=== PATIENT | female | born 1950 | race Asian ===

== ENCOUNTER 2019-01-13 19:12 | Inpatient (IN) | payer MEDICARE, OTHER, BC ==
[2019-01-13 23:40] LABS: ADD MAN DIFF? NO
[2019-01-13 23:43] LABS: WHITE BLOOD COUNT 6.8 10^3/ul (4.8-10.8)
[2019-01-13 23:43] LABS: BASOPHIL # 0.1 10^3/ul (0.0-0.1); BASOPHILS % 0.7 % (0.0-2.0); EOSINOPHILS # 0.1 10^3/ul (0.0-0.5); EOSINOPHILS % 2.1 % (0.0-7.0); HEMATOCRIT 38.5 % (37.0-47.0); HEMOGLOBIN 12.7 g/dl (12.0-16.0); LYMPHOCYTES # 1.6 10^3/ul (0.8-2.9); LYMPHOCYTES % 23.8 % (15.0-51.0); MEAN CORPUSCULAR HEMOGLOBIN 31.4 pg (29.0-33.0); MEAN CORPUSCULAR VOLUME 95.1 fl (82.0-101.0); MEAN PLATELET VOLUME 10.4 fl (7.4-10.4); MONOCYTE # 0.5 10^3/ul (0.3-0.9); MONOCYTES % 7.1 % (0.0-11.0); NEUTROPHIL # 4.5 10^3/ul (1.6-7.5); PLATELET COUNT 283 10^3/UL (140-415); RED BLOOD COUNT 4.05 10^6/ul (4.20-5.40)
[2019-01-13 23:59] LABS: ANION GAP 9 (5-13); BLOOD UREA NITROGEN 19 mg/dl (7-20); CARBON DIOXIDE 29 mmol/L (21-31); CHLORIDE 102 mmol/L (97-110); CREATININE 0.56 mg/dl (0.44-1.00); Estimated GFR > 60 mL/min (>60); GLUCOSE 187 mg/dl (70-220); POTASSIUM 3.5 mmol/L (3.5-5.1); SODIUM 140 mmol/L (135-144)
[2019-01-14 00:03] LABS: INR 0.91; PROTIME 12.4 Sec (11.9-14.9)
[2019-01-14] MEDS ORDERED: ACETAMINOPHEN 325 MG TAB PO (01:00)
[2019-01-14] MEDS ORDERED: ONDANSETRON 4 MG INJ IV (01:00)
[2019-01-14] MEDS ORDERED: POTASSIUM CHLORIDE (SR) 20 MEQ TAB PO (01:09)
[2019-01-14] MEDS ORDERED: NACL 0.9% 3 ML SYG IV (01:30)
[2019-01-14] MEDS ORDERED: ONDANSETRON 4 MG TAB PO (01:30)
[2019-01-14] MEDS ORDERED: BISACODYL (EC) 5 MG TAB PO (01:30)
[2019-01-14] MEDS ORDERED: DOCUSATE SODIUM 100 MG CAP PO (01:30)
[2019-01-14] MEDS: morphine 2 MG INJ IV ×2 (04:24→08:34)
[2019-01-14] MEDS: POTASSIUM CHLORIDE (SR) 20 MEQ TAB PO (04:24)
[2019-01-14] MEDS: hydrALAzine 20 MG INJ IV (04:25)
[2019-01-14 05:52] LABS: ADD MAN DIFF? NO
[2019-01-14 05:58] LABS: BASOPHILS % 0.6 % (0.0-2.0); EOSINOPHILS # 0.1 10^3/ul (0.0-0.5); EOSINOPHILS % 1.2 % (0.0-7.0); HEMATOCRIT 40.2 % (37.0-47.0); HEMOGLOBIN 13.4 g/dl (12.0-16.0); LYMPHOCYTES # 1.7 10^3/ul (0.8-2.9); MEAN CORPUSCULAR HEMOGLOBIN 31.3 pg (29.0-33.0); MEAN CORPUSCULAR HGB CONC 33.3 g/dl (32.0-37.0); MEAN CORPUSCULAR VOLUME 93.9 fl (82.0-101.0); MEAN PLATELET VOLUME 10.8 fl (7.4-10.4); MONOCYTE # 0.5 10^3/ul (0.3-0.9); MONOCYTES % 7.6 % (0.0-11.0); NEUTROPHIL # 4.4 10^3/ul (1.6-7.5); NEUTROPHILS % 65.2 % (39.0-77.0); PLATELET COUNT 298 10^3/UL (140-415); RED BLOOD COUNT 4.28 10^6/ul (4.20-5.40); RED CELL DISTRIBUTION WIDTH 11.9 % (11.5-14.5)
[2019-01-14 05:58] LABS: WHITE BLOOD COUNT 6.7 10^3/ul (4.8-10.8)
[2019-01-14 06:16] LABS: HEMOGLOBIN A1C 6.2 % (0-5.9)
[2019-01-14 06:21] LABS: ALANINE AMINOTRANSFERASE 17 IU/L (13-69); ALBUMIN 3.7 g/dl (3.3-4.9); ALBUMIN/GLOBULIN RATIO 1.19; ALKALINE PHOSPHATASE 203 IU/L (42-121); ANION GAP 13 (5-13); ASPARTATE AMINO TRANSFERASE 16 IU/L (15-46); BILIRUBIN,INDIRECT 0.8 mg/dl (0-1.1); BILIRUBIN,TOTAL 0.8 mg/dl (0.2-1.3); BLOOD UREA NITROGEN 16 mg/dl (7-20); CALCIUM 9.2 mg/dl (8.4-10.2); CARBON DIOXIDE 26 mmol/L (21-31); CHLORIDE 102 mmol/L (97-110); CHOL/HDL RATIO 3.1 RATIO; CHOLESTEROL 118 mg/dl (100-200); CREATININE 0.42 mg/dl (0.44-1.00); Estimated GFR > 60 mL/min (>60); GLUCOSE 192 mg/dl (70-220); HDL CHOLESTEROL 37 mg/dl (33-92); LDL CHOLESTEROL,CALCULATED 67 mg/dl; MAGNESIUM 1.9 mg/dl (1.7-2.5); POTASSIUM 3.7 mmol/L (3.5-5.1); SODIUM 141 mmol/L (135-144); TOTAL PROTEIN 6.8 g/dl (6.1-8.1); TRIGLYCERIDES 71 mg/dl (0-149)
[2019-01-14 06:26] LABS: CREATINE KINASE 42 IU/L (23-200)
[2019-01-14 06:31] LABS: CK INDEX 0.7; TROPONIN-I < 0.012 ng/ml (0.000-0.120)
[2019-01-14] MEDS: AMLODIPINE 10 MG TAB PO (08:42)
[2019-01-14 09:23] LABS: TROPONIN-I < 0.012 ng/ml (0.000-0.120)
[2019-01-14 09:26] LABS: CREATINE KINASE 37 IU/L (23-200)
[2019-01-14 09:45] LABS: CK INDEX 0.7; CK-MB 0.25 ng/ml (0.0-2.4)
[2019-01-14] MEDS ORDERED: GLUCOSE GEL 15 GRAM TUBE BUCCAL (11:00)
[2019-01-14] MEDS ORDERED: GLUCAGON 1 MG INJ IM (11:00)
[2019-01-14] MEDS ORDERED: GLUCOSE GEL 15 GRAM TUBE PO ×2 (11:00)
[2019-01-14] MEDS ORDERED: DEXTROSE 50% 50 ML SYRINGE IV ×2 (11:00)
[2019-01-14] MEDS: INSULIN ASPART [NOVOLOG] 3 ML PEN SC ×3 (14:16→20:58)
[2019-01-14 15:02] LABS: CREATINE KINASE 32 IU/L (23-200)
[2019-01-14 15:15] LABS: CK INDEX 0.9; CK-MB 0.29 ng/ml (0.0-2.4); TROPONIN-I < 0.012 ng/ml (0.000-0.120)
[2019-01-14] MEDS: ATORVASTATIN 20 MG TAB PO (20:37)
[2019-01-15 06:06] LABS: ADD MAN DIFF? NO
[2019-01-15 06:26] LABS: WHITE BLOOD COUNT 7.4 10^3/ul (4.8-10.8)
[2019-01-15 06:26] LABS: BASOPHILS % 0.5 % (0.0-2.0); EOSINOPHILS # 0.1 10^3/ul (0.0-0.5); EOSINOPHILS % 1.1 % (0.0-7.0); HEMOGLOBIN 12.2 g/dl (12.0-16.0); LYMPHOCYTES # 1.5 10^3/ul (0.8-2.9); LYMPHOCYTES % 20.1 % (15.0-51.0); MEAN CORPUSCULAR HEMOGLOBIN 31.1 pg (29.0-33.0); MEAN CORPUSCULAR VOLUME 94.4 fl (82.0-101.0); MEAN PLATELET VOLUME 10.8 fl (7.4-10.4); MONOCYTE # 0.5 10^3/ul (0.3-0.9); MONOCYTES % 6.5 % (0.0-11.0); NEUTROPHIL # 5.3 10^3/ul (1.6-7.5); NEUTROPHILS % 71.4 % (39.0-77.0); PLATELET COUNT 308 10^3/UL (140-415); RED BLOOD COUNT 3.92 10^6/ul (4.20-5.40); RED CELL DISTRIBUTION WIDTH 12.1 % (11.5-14.5)
[2019-01-15 06:48] LABS: PHOSPHORUS 3.9 mg/dl (2.5-4.9)
[2019-01-15 07:12] LABS: ALANINE AMINOTRANSFERASE 15 IU/L (13-69); ALBUMIN 3.4 g/dl (3.3-4.9); ALBUMIN/GLOBULIN RATIO 1.06; ALKALINE PHOSPHATASE 186 IU/L (42-121); ANION GAP 10 (5-13); ASPARTATE AMINO TRANSFERASE 17 IU/L (15-46); BILIRUBIN,INDIRECT 0.7 mg/dl (0-1.1); BILIRUBIN,TOTAL 0.7 mg/dl (0.2-1.3); BLOOD UREA NITROGEN 14 mg/dl (7-20); CALCIUM 8.8 mg/dl (8.4-10.2); CARBON DIOXIDE 26 mmol/L (21-31); CHLORIDE 104 mmol/L (97-110); CREATININE 0.49 mg/dl (0.44-1.00); Estimated GFR > 60 mL/min (>60); GLUCOSE 188 mg/dl (70-220); SODIUM 140 mmol/L (135-144); TOTAL PROTEIN 6.6 g/dl (6.1-8.1)
[2019-01-15] MEDS: AMLODIPINE 10 MG TAB PO (08:15)
[2019-01-15] MEDS: ENOXAPARIN 40 MG/0.4 ML SYG SC (08:17)
[2019-01-15] MEDS: INSULIN ASPART [NOVOLOG] 3 ML PEN SC ×4 (08:48→20:37)
[2019-01-15] MEDS: HYDROCODONE/APAP (5/325) TAB PO (16:04)
[2019-01-15] MEDS: ATORVASTATIN 20 MG TAB PO (20:35)
[2019-01-15] MEDS: hydrALAzine 20 MG INJ IV (20:35)
[2019-01-16] MEDS: ACCUCHECK 2 AM XX (02:40)
[2019-01-16] MEDS: morphine 2 MG INJ IV ×2 (03:20→23:45)
[2019-01-16 05:19] LABS: ADD MAN DIFF? NO
[2019-01-16 05:23] LABS: WHITE BLOOD COUNT 7.4 10^3/ul (4.8-10.8)
[2019-01-16 05:24] LABS: BASOPHIL # 0.1 10^3/ul (0.0-0.1); BASOPHILS % 0.7 % (0.0-2.0); EOSINOPHILS # 0.1 10^3/ul (0.0-0.5); EOSINOPHILS % 1.1 % (0.0-7.0); HEMATOCRIT 38.2 % (37.0-47.0); HEMOGLOBIN 12.8 g/dl (12.0-16.0); LYMPHOCYTES # 1.2 10^3/ul (0.8-2.9); LYMPHOCYTES % 16.8 % (15.0-51.0); MEAN CORPUSCULAR HEMOGLOBIN 31.3 pg (29.0-33.0); MEAN CORPUSCULAR HGB CONC 33.5 g/dl (32.0-37.0); MEAN CORPUSCULAR VOLUME 93.4 fl (82.0-101.0); MEAN PLATELET VOLUME 10.5 fl (7.4-10.4); MONOCYTE # 0.5 10^3/ul (0.3-0.9); MONOCYTES % 7.3 % (0.0-11.0); NEUTROPHIL # 5.5 10^3/ul (1.6-7.5); NEUTROPHILS % 73.7 % (39.0-77.0); PLATELET COUNT 329 10^3/UL (140-415); RED BLOOD COUNT 4.09 10^6/ul (4.20-5.40); RED CELL DISTRIBUTION WIDTH 12.3 % (11.5-14.5)
[2019-01-16 05:53] LABS: ALANINE AMINOTRANSFERASE 14 IU/L (13-69); ALBUMIN 3.7 g/dl (3.3-4.9); ALBUMIN/GLOBULIN RATIO 1.15; ALKALINE PHOSPHATASE 208 IU/L (42-121); ANION GAP 9 (5-13); ASPARTATE AMINO TRANSFERASE 16 IU/L (15-46); BILIRUBIN,INDIRECT 0.7 mg/dl (0-1.1); BILIRUBIN,TOTAL 0.7 mg/dl (0.2-1.3); BLOOD UREA NITROGEN 14 mg/dl (7-20); CARBON DIOXIDE 27 mmol/L (21-31); CHLORIDE 102 mmol/L (97-110); CREATININE 0.46 mg/dl (0.44-1.00); Estimated GFR > 60 mL/min (>60); GLUCOSE 247 mg/dl (70-220); POTASSIUM 4.1 mmol/L (3.5-5.1); SODIUM 138 mmol/L (135-144); TOTAL PROTEIN 6.9 g/dl (6.1-8.1)
[2019-01-16 05:55] LABS: PHOSPHORUS 4.1 mg/dl (2.5-4.9)
[2019-01-16] MEDS: AMLODIPINE 10 MG TAB PO (08:56)
[2019-01-16] MEDS: INSULIN ASPART [NOVOLOG] 3 ML PEN SC ×4 (08:58→21:07)
[2019-01-16] MEDS: ENOXAPARIN 40 MG/0.4 ML SYG SC (08:58)
[2019-01-16] MEDS: INSULIN GLARGINE [LANTus] (100 UNITS/ML) SYG SC (10:01)
[2019-01-16] MEDS: ATORVASTATIN 20 MG TAB PO (21:05)
[2019-01-17] MEDS: ACCUCHECK 2 AM XX (02:15)
[2019-01-17 05:12] LABS: ADD MAN DIFF? NO
[2019-01-17 05:22] LABS: WHITE BLOOD COUNT 7.8 10^3/ul (4.8-10.8)
[2019-01-17 05:22] LABS: BASOPHILS % 0.5 % (0.0-2.0); EOSINOPHILS # 0.1 10^3/ul (0.0-0.5); EOSINOPHILS % 1.4 % (0.0-7.0); HEMATOCRIT 38.9 % (37.0-47.0); HEMOGLOBIN 12.8 g/dl (12.0-16.0); LYMPHOCYTES # 1.7 10^3/ul (0.8-2.9); LYMPHOCYTES % 21.9 % (15.0-51.0); MEAN CORPUSCULAR HEMOGLOBIN 31.4 pg (29.0-33.0); MEAN CORPUSCULAR HGB CONC 32.9 g/dl (32.0-37.0); MEAN CORPUSCULAR VOLUME 95.6 fl (82.0-101.0); MEAN PLATELET VOLUME 10.6 fl (7.4-10.4); MONOCYTE # 0.6 10^3/ul (0.3-0.9); MONOCYTES % 7.9 % (0.0-11.0); NEUTROPHIL # 5.3 10^3/ul (1.6-7.5); NEUTROPHILS % 67.9 % (39.0-77.0); PLATELET COUNT 329 10^3/UL (140-415); RED BLOOD COUNT 4.07 10^6/ul (4.20-5.40); RED CELL DISTRIBUTION WIDTH 12.2 % (11.5-14.5)
[2019-01-17 05:54] LABS: ALANINE AMINOTRANSFERASE 16 IU/L (13-69); ALBUMIN 3.5 g/dl (3.3-4.9); ALKALINE PHOSPHATASE 214 IU/L (42-121); ANION GAP 8 (5-13); ASPARTATE AMINO TRANSFERASE 20 IU/L (15-46); BILIRUBIN,INDIRECT 0.8 mg/dl (0-1.1); BILIRUBIN,TOTAL 0.8 mg/dl (0.2-1.3); BLOOD UREA NITROGEN 19 mg/dl (7-20); CALCIUM 9.3 mg/dl (8.4-10.2); CARBON DIOXIDE 28 mmol/L (21-31); CHLORIDE 104 mmol/L (97-110); Estimated GFR > 60 mL/min (>60); GLUCOSE 209 mg/dl (70-220); POTASSIUM 4.4 mmol/L (3.5-5.1); SODIUM 140 mmol/L (135-144)
[2019-01-17] MEDS: INSULIN ASPART [NOVOLOG] 3 ML PEN SC ×4 (09:01→21:56)
[2019-01-17] MEDS: INSULIN GLARGINE [LANTus] (100 UNITS/ML) SYG SC (09:01)
[2019-01-17] MEDS: ENOXAPARIN 40 MG/0.4 ML SYG SC (09:02)
[2019-01-17] MEDS: AMLODIPINE 10 MG TAB PO (09:03)
[2019-01-17] MEDS: ATORVASTATIN 20 MG TAB PO (21:52)
[2019-01-17] MEDS: ACETAMINOPHEN 325 MG TAB PO (22:44)
[2019-01-18] MEDS: INSULIN ASPART [NOVOLOG] 3 ML PEN SC ×6 (08:58→20:21)
[2019-01-18] MEDS: INSULIN GLARGINE [LANTus] (100 UNITS/ML) SYG SC ×2 (08:59→13:19)
[2019-01-18] MEDS: ENOXAPARIN 40 MG/0.4 ML SYG SC (09:00)
[2019-01-18] MEDS: AMLODIPINE 10 MG TAB PO (09:00)
[2019-01-18] MEDS: HYDROCODONE/APAP (5/325) TAB PO (13:06)
[2019-01-18] MEDS: ATORVASTATIN 20 MG TAB PO (20:21)
[2019-01-19 05:06] LABS: ADD MAN DIFF? NO
[2019-01-19 05:14] LABS: WHITE BLOOD COUNT 6.1 10^3/ul (4.8-10.8)
[2019-01-19 05:14] LABS: BASOPHIL # 0.1 10^3/ul (0.0-0.1); BASOPHILS % 0.8 % (0.0-2.0); EOSINOPHILS # 0.2 10^3/ul (0.0-0.5); EOSINOPHILS % 2.9 % (0.0-7.0); HEMATOCRIT 39.6 % (37.0-47.0); HEMOGLOBIN 12.9 g/dl (12.0-16.0); LYMPHOCYTES # 1.7 10^3/ul (0.8-2.9); MEAN CORPUSCULAR HEMOGLOBIN 31.1 pg (29.0-33.0); MEAN CORPUSCULAR HGB CONC 32.6 g/dl (32.0-37.0); MEAN CORPUSCULAR VOLUME 95.4 fl (82.0-101.0); MEAN PLATELET VOLUME 10.6 fl (7.4-10.4); MONOCYTE # 0.5 10^3/ul (0.3-0.9); MONOCYTES % 8.2 % (0.0-11.0); NEUTROPHIL # 3.7 10^3/ul (1.6-7.5); NEUTROPHILS % 60.8 % (39.0-77.0); PLATELET COUNT 336 10^3/UL (140-415); RED BLOOD COUNT 4.15 10^6/ul (4.20-5.40); RED CELL DISTRIBUTION WIDTH 12.4 % (11.5-14.5)
[2019-01-19 05:43] LABS: ANION GAP 8 (5-13); BLOOD UREA NITROGEN 20 mg/dl (7-20); CALCIUM 9.4 mg/dl (8.4-10.2); CARBON DIOXIDE 28 mmol/L (21-31); CHLORIDE 105 mmol/L (97-110); CREATININE 0.54 mg/dl (0.44-1.00); Estimated GFR > 60 mL/min (>60); GLUCOSE 177 mg/dl (70-220); MAGNESIUM 2.2 mg/dl (1.7-2.5); POTASSIUM 4.4 mmol/L (3.5-5.1); SODIUM 141 mmol/L (135-144)
[2019-01-19 08:55] LABS: PROTIME 12.3 Sec (11.9-14.9)
[2019-01-19 08:56] LABS: PARTIAL THROMBOPLASTIN TIME 28.8 Sec (23.0-35.0)
[2019-01-19] MEDS: ENOXAPARIN 40 MG/0.4 ML SYG SC (09:00)
[2019-01-19] MEDS: AMLODIPINE 10 MG TAB PO (09:00)
[2019-01-19] MEDS: INSULIN ASPART [NOVOLOG] 3 ML PEN SC ×4 (09:30→21:13)
[2019-01-19] MEDS: INSULIN GLARGINE [LANTus] (100 UNITS/ML) SYG SC (09:31)
[2019-01-19] MEDS ORDERED: LIDOCAINE 2% (SDV) 5 ML INJ (14:42)
[2019-01-19] MEDS ORDERED: ROCURONIUM 50 MG INJ (14:42)
[2019-01-19] MEDS ORDERED: EPHEDrine 25 MG/5 ML SYG (14:42)
[2019-01-19] MEDS ORDERED: ETOMIDATE 20 MG INJ (14:42)
[2019-01-19] MEDS ORDERED: CEFAZOLIN 1 GM INJ (14:42)
[2019-01-19] MEDS ORDERED: FENTAnyl 50 MCG/ML VIAL (14:43)
[2019-01-19] MEDS ORDERED: MIDAZOLAM 1 MG/ML 2 ML INJ (14:43)
[2019-01-19] MEDS: POLYMYXIN/BACITRACIN 1L IRRIG (15:59)
[2019-01-19] MEDS ORDERED: NEOSTIGMINE 10 MG INJ (16:26)
[2019-01-19] MEDS ORDERED: GLYCOPYRROLATE 0.4 MG INJ (16:26)
[2019-01-19] MEDS ORDERED: DEXAMETHASONE 4 MG/ML 5 ML INJ (16:29)
[2019-01-19] MEDS ORDERED: ONDANSETRON 4 MG INJ (16:29)
[2019-01-19] MEDS ORDERED: NACL 0.9% 3 ML SYG IV (16:30)
[2019-01-19] MEDS: CEFAZOLIN 2 GM/50 ML (PMX) 50 ML IVPB (16:30)
[2019-01-19] MEDS ORDERED: DIPHENHYDRAMINE 50 MG INJ IV (17:00)
[2019-01-19] MEDS ORDERED: KETOROLAC 30 MG INJ IV (17:00)
[2019-01-19] MEDS ORDERED: ONDANSETRON 4 MG INJ IV (17:00)
[2019-01-19] MEDS ORDERED: HYDROmorphONE 1 MG/5 ML IV SYRINGE IV ×2 (17:00)
[2019-01-19] MEDS ORDERED: LABETALOL HCL 20MG INJ IV (17:00)
[2019-01-19] MEDS ORDERED: MEPERIDINE 25 MG INJ IV (17:00)
[2019-01-19] MEDS ORDERED: MIDAZOLAM 1 MG/ML 2 ML INJ IV (17:00)
[2019-01-19] MEDS ORDERED: EPHEDrine SULFATE 50 MG/5 ML SYG IV (17:00)
[2019-01-19] MEDS ORDERED: METOCLOPRAMIDE 10 MG INJ IV (17:00)
[2019-01-19] MEDS ORDERED: ALBUTEROL 0.083% (NEB) 2.5 MG/3 ML AMP HHN (17:00)
[2019-01-19 17:19] LABS: ADD MAN DIFF? NO
[2019-01-19 17:23] LABS: WHITE BLOOD COUNT 6.9 10^3/ul (4.8-10.8)
[2019-01-19 17:23] LABS: BASOPHILS % 0.6 % (0.0-2.0); EOSINOPHILS # 0.1 10^3/ul (0.0-0.5); EOSINOPHILS % 1.5 % (0.0-7.0); HEMATOCRIT 38.5 % (37.0-47.0); HEMOGLOBIN 12.2 g/dl (12.0-16.0); LYMPHOCYTES # 1.8 10^3/ul (0.8-2.9); LYMPHOCYTES % 26.4 % (15.0-51.0); MEAN CORPUSCULAR HGB CONC 31.7 g/dl (32.0-37.0); MEAN PLATELET VOLUME 10.7 fl (7.4-10.4); MONOCYTE # 0.6 10^3/ul (0.3-0.9); MONOCYTES % 8.7 % (0.0-11.0); NEUTROPHIL # 4.3 10^3/ul (1.6-7.5); NEUTROPHILS % 62.4 % (39.0-77.0); PLATELET COUNT 295 10^3/UL (140-415); RED BLOOD COUNT 3.93 10^6/ul (4.20-5.40); RED CELL DISTRIBUTION WIDTH 12.3 % (11.5-14.5)
[2019-01-19] MEDS: HYDROmorphONE 1 MG/5 ML IV SYRINGE IV (17:42)
[2019-01-19 17:45] LABS: ANION GAP 8 (5-13); BLOOD UREA NITROGEN 17 mg/dl (7-20); CALCIUM 8.9 mg/dl (8.4-10.2); CARBON DIOXIDE 25 mmol/L (21-31); CHLORIDE 108 mmol/L (97-110); Estimated GFR > 60 mL/min (>60); GLUCOSE 111 mg/dl (70-220); POTASSIUM 4.2 mmol/L (3.5-5.1); SODIUM 141 mmol/L (135-144)
[2019-01-19] MEDS: hydrALAzine 20 MG INJ IV (18:04)
[2019-01-19] MEDS: SOD CHLORIDE 0.9% 1,000 ML IV (18:47)
[2019-01-19] MEDS: morphine 2 MG INJ IV ×2 (19:39→23:13)
[2019-01-19] MEDS: ATORVASTATIN 20 MG TAB PO (21:09)
[2019-01-20] MEDS: CEFAZOLIN 2 GM/50 ML (PMX) 50 ML IVPB ×2 (01:22→08:34)
[2019-01-20] MEDS: INSULIN ASPART [NOVOLOG] 3 ML PEN SC ×5 (01:29→20:48)
[2019-01-20] MEDS: morphine 2 MG INJ IV ×3 (03:20→12:34)
[2019-01-20] MEDS: SOD CHLORIDE 0.9% 1,000 ML IV ×3 (05:00→20:39)
[2019-01-20 05:10] LABS: ADD MAN DIFF? NO
[2019-01-20 05:16] LABS: ABNORMAL IP MESSAGE 1; BASOPHILS % 0.1 % (0.0-2.0); HEMATOCRIT 37.8 % (37.0-47.0); HEMOGLOBIN 12.5 g/dl (12.0-16.0); LYMPHOCYTES # 0.5 10^3/ul (0.8-2.9); LYMPHOCYTES % 7.2 % (15.0-51.0); MEAN CORPUSCULAR HEMOGLOBIN 31.9 pg (29.0-33.0); MEAN CORPUSCULAR HGB CONC 33.1 g/dl (32.0-37.0); MEAN CORPUSCULAR VOLUME 96.4 fl (82.0-101.0); MEAN PLATELET VOLUME 11.4 fl (7.4-10.4); MONOCYTE # 0.3 10^3/ul (0.3-0.9); MONOCYTES % 4.7 % (0.0-11.0); NEUTROPHIL # 6.1 10^3/ul (1.6-7.5); NEUTROPHILS % 87.6 % (39.0-77.0); PLATELET COUNT 315 10^3/UL (140-415); RED BLOOD COUNT 3.92 10^6/ul (4.20-5.40); RED CELL DISTRIBUTION WIDTH 12.4 % (11.5-14.5)
[2019-01-20 05:39] LABS: POSITIVE DIFF @See below
[2019-01-20 06:04] LABS: ANION GAP 10 (5-13); BLOOD UREA NITROGEN 22 mg/dl (7-20); CARBON DIOXIDE 25 mmol/L (21-31); CHLORIDE 106 mmol/L (97-110); CREATININE 0.47 mg/dl (0.44-1.00); Estimated GFR > 60 mL/min (>60); GLUCOSE 175 mg/dl (70-220); POTASSIUM 4.6 mmol/L (3.5-5.1); SODIUM 141 mmol/L (135-144)
[2019-01-20] MEDS: AMLODIPINE 10 MG TAB PO (08:37)
[2019-01-20] MEDS: INSULIN GLARGINE [LANTus] (100 UNITS/ML) SYG SC (08:40)
[2019-01-20] MEDS: ENOXAPARIN 40 MG/0.4 ML SYG SC (08:41)
[2019-01-20] MEDS: ATORVASTATIN 20 MG TAB PO (20:32)
[2019-01-20] MEDS: HYDROCODONE/APAP (5/325) TAB PO (20:33)
[2019-01-21] MEDS: ACCUCHECK AT 2AM (Patients on SS coverage) XX (02:00)
[2019-01-21 05:49] LABS: ADD MAN DIFF? NO
[2019-01-21 06:01] LABS: BASOPHILS % 0.4 % (0.0-2.0); EOSINOPHILS # 0.1 10^3/ul (0.0-0.5); EOSINOPHILS % 0.6 % (0.0-7.0); HEMATOCRIT 34.8 % (37.0-47.0); HEMOGLOBIN 11.3 g/dl (12.0-16.0); LYMPHOCYTES # 2.2 10^3/ul (0.8-2.9); LYMPHOCYTES % 26.9 % (15.0-51.0); MEAN CORPUSCULAR HEMOGLOBIN 31.1 pg (29.0-33.0); MEAN CORPUSCULAR HGB CONC 32.5 g/dl (32.0-37.0); MEAN CORPUSCULAR VOLUME 95.9 fl (82.0-101.0); MONOCYTE # 0.6 10^3/ul (0.3-0.9); MONOCYTES % 7.8 % (0.0-11.0); NEUTROPHIL # 5.2 10^3/ul (1.6-7.5); NEUTROPHILS % 63.9 % (39.0-77.0); PLATELET COUNT 299 10^3/UL (140-415); RED BLOOD COUNT 3.63 10^6/ul (4.20-5.40); RED CELL DISTRIBUTION WIDTH 12.5 % (11.5-14.5)
[2019-01-21 06:01] LABS: WHITE BLOOD COUNT 8.1 10^3/ul (4.8-10.8)
[2019-01-21 06:23] LABS: ANION GAP 6 (5-13); BLOOD UREA NITROGEN 19 mg/dl (7-20); CALCIUM 8.8 mg/dl (8.4-10.2); CARBON DIOXIDE 27 mmol/L (21-31); CHLORIDE 108 mmol/L (97-110); CREATININE 0.55 mg/dl (0.44-1.00); Estimated GFR > 60 mL/min (>60); GLUCOSE 121 mg/dl (70-220); POTASSIUM 4.3 mmol/L (3.5-5.1); SODIUM 141 mmol/L (135-144)
[2019-01-21] MEDS: INSULIN ASPART [NOVOLOG] 3 ML PEN SC ×4 (07:50→21:24)
[2019-01-21] MEDS: MELOXICAM 7.5 MG TAB PO (09:31)
[2019-01-21] MEDS: ASPIRIN (EC) 81 MG TAB PO (09:32)
[2019-01-21] MEDS: ENOXAPARIN 40 MG/0.4 ML SYG SC (09:34)
[2019-01-21] MEDS: INSULIN GLARGINE [LANTus] (100 UNITS/ML) SYG SC (09:35)
[2019-01-21] MEDS: AMLODIPINE 10 MG TAB PO (09:36)
[2019-01-21] MEDS: ATENOLOL 25 MG TAB PO (11:22)
[2019-01-21] MEDS: HYDROCODONE/APAP (5/325) TAB PO (11:22)
[2019-01-21 16:23] LABS: RAPID PLASMA REAGIN NONREACTIVE (NR)
[2019-01-21] MEDS: morphine 2 MG INJ IV (19:36)
[2019-01-21] MEDS: ATORVASTATIN 20 MG TAB PO (21:18)
[2019-01-22] MEDS: ACCUCHECK AT 2AM (Patients on SS coverage) XX (01:18)
[2019-01-22] MEDS: HYDROCODONE/APAP (5/325) TAB PO ×2 (05:55→10:52)
[2019-01-22] MEDS: ASPIRIN (EC) 81 MG TAB PO (08:58)
[2019-01-22] MEDS: MELOXICAM 7.5 MG TAB PO (08:58)
[2019-01-22] MEDS: ATENOLOL 25 MG TAB PO (08:59)
[2019-01-22] MEDS: LOSARTAN 50 MG TAB PO (08:59)
[2019-01-22] MEDS: AMLODIPINE 5 MG TAB PO (08:59)
[2019-01-22] MEDS: INSULIN ASPART [NOVOLOG] 3 ML PEN SC ×4 (09:01→21:00)
[2019-01-22] MEDS: ENOXAPARIN 40 MG/0.4 ML SYG SC (09:02)
[2019-01-22] MEDS: INSULIN GLARGINE [LANTus] (100 UNITS/ML) SYG SC (09:02)
[2019-01-22] MEDS: CHOLECALCIFEROL 2,000 UNIT CAP PO (13:12)
[2019-01-22] MEDS: ATORVASTATIN 20 MG TAB PO (21:13)
[2019-01-23] MEDS: ACCUCHECK AT 2AM (Patients on SS coverage) XX (01:57)
[2019-01-23] MEDS: HYDROCODONE/APAP (5/325) TAB PO ×3 (03:31→12:59)
[2019-01-23 05:18] LABS: ADD MAN DIFF? NO
[2019-01-23 05:21] LABS: BASOPHILS % 0.7 % (0.0-2.0); EOSINOPHILS # 0.1 10^3/ul (0.0-0.5); EOSINOPHILS % 1.5 % (0.0-7.0); HEMATOCRIT 34.6 % (37.0-47.0); HEMOGLOBIN 11.1 g/dl (12.0-16.0); LYMPHOCYTES # 1.6 10^3/ul (0.8-2.9); LYMPHOCYTES % 26.8 % (15.0-51.0); MEAN CORPUSCULAR HGB CONC 32.1 g/dl (32.0-37.0); MEAN CORPUSCULAR VOLUME 96.6 fl (82.0-101.0); MEAN PLATELET VOLUME 10.9 fl (7.4-10.4); MONOCYTE # 0.6 10^3/ul (0.3-0.9); MONOCYTES % 9.4 % (0.0-11.0); NEUTROPHIL # 3.6 10^3/ul (1.6-7.5); NEUTROPHILS % 61.1 % (39.0-77.0); PLATELET COUNT 282 10^3/UL (140-415); RED BLOOD COUNT 3.58 10^6/ul (4.20-5.40); RED CELL DISTRIBUTION WIDTH 12.3 % (11.5-14.5)
[2019-01-23 05:21] LABS: WHITE BLOOD COUNT 5.9 10^3/ul (4.8-10.8)
[2019-01-23 06:03] LABS: ANION GAP 6 (5-13); BLOOD UREA NITROGEN 17 mg/dl (7-20); CALCIUM 9.1 mg/dl (8.4-10.2); CARBON DIOXIDE 29 mmol/L (21-31); CHLORIDE 106 mmol/L (97-110); CREATININE 0.45 mg/dl (0.44-1.00); Estimated GFR > 60 mL/min (>60); GLUCOSE 162 mg/dl (70-220); SODIUM 141 mmol/L (135-144)
[2019-01-23 08:21] LABS: POTASSIUM 4.1 mmol/L (3.5-5.1)
[2019-01-23] MEDS: ASPIRIN (EC) 81 MG TAB PO (08:55)
[2019-01-23] MEDS: MELOXICAM 7.5 MG TAB PO (08:55)
[2019-01-23] MEDS: CHOLECALCIFEROL 2,000 UNIT CAP PO (08:55)
[2019-01-23] MEDS: AMLODIPINE 5 MG TAB PO (08:56)
[2019-01-23] MEDS: ATENOLOL 25 MG TAB PO (08:56)
[2019-01-23] MEDS: LOSARTAN 50 MG TAB PO (08:56)
[2019-01-23] MEDS: INSULIN ASPART [NOVOLOG] 3 ML PEN SC ×4 (08:57→21:00)
[2019-01-23] MEDS: INSULIN GLARGINE [LANTus] (100 UNITS/ML) SYG SC (08:58)
[2019-01-23] MEDS: ENOXAPARIN 40 MG/0.4 ML SYG SC (08:58)
[2019-01-23] MEDS: ATORVASTATIN 20 MG TAB PO (21:00)
[2019-01-24] MEDS: ACCUCHECK AT 2AM (Patients on SS coverage) XX (01:37)
[2019-01-24] MEDS: INSULIN ASPART [NOVOLOG] 3 ML PEN SC ×3 (07:50→18:09)
[2019-01-24] MEDS: CHOLECALCIFEROL 2,000 UNIT CAP PO (09:11)
[2019-01-24] MEDS: LOSARTAN 50 MG TAB PO (09:12)
[2019-01-24] MEDS: ATENOLOL 25 MG TAB PO (09:13)
[2019-01-24] MEDS: ENOXAPARIN 40 MG/0.4 ML SYG SC (09:13)
[2019-01-24] MEDS: INSULIN GLARGINE [LANTus] (100 UNITS/ML) SYG SC (09:15)
[2019-01-24] MEDS: ASPIRIN (EC) 81 MG TAB PO (09:15)
[2019-01-24] MEDS: AMLODIPINE 5 MG TAB PO (09:16)
[2019-01-24] MEDS: MELOXICAM 7.5 MG TAB PO (09:17)
[2019-01-24] MEDS: HYDROCODONE/APAP (5/325) TAB PO (12:14)
== END 2019-01-24 18:45 | DRG 482 ==
LOC: MS1 01-14 00:46 → FTE 19:12
PROC: 0QS604Z Reposition Right Upper Femur with Internal Fixation Device, Open Approach (ICD-10-PCS; principal; 2019-01-19 13:30)
DX: S72.144A Nondisplaced intertrochanteric fracture of right femur, initial encounter for closed fracture (principal); E11.8 Type 2 diabetes mellitus with unspecified complications; F03.90 Unspecified dementia, unspecified severity, without behavioral disturbance, psychotic disturbance, mood disturbance, and anxiety; I10 Essential (primary) hypertension; E78.5 Hyperlipidemia, unspecified; M19.90 Unspecified osteoarthritis, unspecified site; D64.9 Anemia, unspecified; R07.9 Chest pain, unspecified; Z86.73 Personal history of transient ischemic attack (TIA), and cerebral infarction without residual deficits
CPT/HCPCS: 71045; 73500; 73510; 73530; 80048; 80053; 80061; 82306; 82550; 82553; 82962; 83036; 83735; 84100; 84443; 84484; 85025; 85610; 85730; 86592; 86850; 86900; 86901; 93005; 93306; 97110; 97116; 97163; 97167; 97530; 97535; 99285-25